=== PATIENT | female | born 1995 ===

== ENCOUNTER 2020-10-30 08:17 | Observation (INO) | payer BC ==
[2020-10-30] MEDS ORDERED: Terbutaline 1 MG/ML SDV SUBCUT PRN (09:10)
[2020-10-30] MEDS ORDERED: Sodium Chloride 0.9% 10 ML Syringe FLUSH PRN (09:10)
[2020-10-30] MEDS ORDERED: Nalbuphine 10 MG/1 ML Vial IVPUSH PRN ×2 (09:10→09:24)
[2020-10-30] MEDS ORDERED: Sodium Chloride 0.9% 2.5 ML Syringe FLUSH PRN (09:10)
[2020-10-30] MEDS ORDERED: Lidocaine 1% 50 ML MDV INJECT PRN (09:10)
[2020-10-30] MEDS ORDERED: Methylergonovine 0.2 MG/1 ML Amp IM PRN (09:10)
[2020-10-30] MEDS ORDERED: Misoprostol 200 MCG Tab PO PRN (09:10)
[2020-10-30] MEDS ORDERED: Sodium Chloride 0.9% 10 ML SDV IV PRN (09:10)
[2020-10-30] MEDS ORDERED: Carboprost Tromethamine 250 MCG/1 ML Amp IM PRN (09:10)
[2020-10-30] MEDS ORDERED: Ondansetron 4 MG/2 ML SDV IVPUSH PRN (09:10)
[2020-10-30] MEDS ORDERED: Water For Irrigation,Sterile 1,000 ML Container IRR PRN (09:10)
[2020-10-30] MEDS ORDERED: Tranexamic Acid 1,000 MG in Sodium Chloride 0.9% 100 ML IV PRN (09:10)
[2020-10-30] MEDS ORDERED: Butorphanol 1 MG/ML SDV IVPUSH PRN (09:10)
[2020-10-30] MEDS ORDERED: Oxytocin/0.9 % Sodium Chloride 30 UNIT/500 ML BAG IV SCH ×2 (09:15)
[2020-10-30] MEDS ORDERED: Lactated Ringers 1,000 ML IV SCH (09:15)
== END 2020-10-30 09:55 | disposition home or self-care (01) ==
LOC: MW.OBCHECK 08:17 → MW.OB 08:17 → MW.OBCHECK 08:30 → MW.OB 08:30
PROVIDERS: ADMIT Obstetrics & Gynecology; ATTEND Obstetrics & Gynecology
DX: O32.1XX0 Maternal care for breech presentation, not applicable or unspecified (principal); Z3A.39 39 weeks gestation of pregnancy
CPT/HCPCS: 36415; 59025; 85027; 86592; 86850; 86900; 86901; J7120

== ENCOUNTER 2020-11-03 07:59 | Inpatient (IN) | payer BC ==
[2020-11-03] MEDS ORDERED: Sodium Chloride 0.9% 10 ML SDV IV PRN (08:12)
[2020-11-03] MEDS ORDERED: Methylergonovine 0.2 MG/1 ML Amp IM PRN ×2 (08:12→16:43)
[2020-11-03] MEDS ORDERED: Water For Irrigation,Sterile 1,000 ML Container IRR PRN (08:12)
[2020-11-03] MEDS ORDERED: Lidocaine 1% 50 ML MDV INJECT PRN (08:12)
[2020-11-03] MEDS ORDERED: Tranexamic Acid 1,000 MG in Sodium Chloride 0.9% 100 ML IV PRN ×2 (08:12→16:43)
[2020-11-03] MEDS ORDERED: Misoprostol 200 MCG Tab PO PRN (08:12)
[2020-11-03] MEDS ORDERED: Sodium Chloride 0.9% 10 ML Syringe FLUSH PRN (08:12)
[2020-11-03] MEDS ORDERED: Carboprost Tromethamine 250 MCG/1 ML Amp IM PRN (08:12)
[2020-11-03] MEDS ORDERED: Nalbuphine 10 MG/1 ML Vial IVPUSH PRN (08:12)
[2020-11-03] MEDS ORDERED: Terbutaline 1 MG/ML SDV SUBCUT PRN (08:12)
[2020-11-03] MEDS ORDERED: Sodium Chloride 0.9% 2.5 ML Syringe FLUSH PRN (08:12)
[2020-11-03] MEDS ORDERED: Butorphanol 1 MG/ML SDV IVPUSH PRN (08:12)
[2020-11-03] MEDS ORDERED: Oxytocin/0.9 % Sodium Chloride 30 UNIT/500 ML BAG IV SCH ×2 (08:15)
[2020-11-03] MEDS: Lactated Ringers 1,000 ML IV SCH ×3 (08:50→13:12)
[2020-11-03] MEDS ORDERED: Ropivacaine HCl/PF 100 ML ONE (12:22)
[2020-11-03] MEDS ORDERED: fentaNYL 100 MCG/2 ML SDV ONE (12:22)
--- NOTE | 2020-11-03 13:12 | PCM.PREANE ---
Preanesthetic Assessment - Procedure Proposed Procedure: Late entry, H&P with pt participation at 1235 prior to epidural placement. LAYLA for labor analgesia - Anesthesia/Transfusion/Family Hx Anesthesia History: Prior Anesthesia Without Reaction (History of breast aug., wisdom teeth under sedation, and multiple successful epidurals, all without anesthesia complications.) Family History of Anesthesia Reaction: No Transfusion History: No Prior Transfusion(s) - Review of Systems General: No Symptoms Pulmonary: No Symptoms Cardiovascular: No Symptoms Gastrointestinal: No Symptoms Neurological: No Symptoms Other: Reports: None - Physical Assessment NPO Status Date: 11/02/20 (Clear liquids only since before midnight) NPO Status Time: 23:30 Height: 1.63 m Weight: 97.976 kg ASA Class: 2 Mental Status: Alert & Oriented x3 Airway Class: Mallampati = 2 Dentition: Reports: Normal Dentition Thyro-Mental Finger Breadths: 3 Mouth Opening Finger Breadths: 3 ROM/Head Extension: Full Lungs: Normal Respiratory Effort Cardiovascular: Regular Rate, Regular Rhythm - Lab Values: Laboratory Last Values WBC 8.89 K/uL (4.0-11.0) 11/03/20 08:40 RBC 3.58 M/uL (4.30-5.90) L 11/03/20 08:40 Hgb 10.0 g/dL (12.0-16.0) L 11/03/20 08:40 Hct 30.8 % (36.0-46.0) L 11/03/20 08:40 MCV 86.0 fL (80.0-98.0) 11/03/20 08:40 MCH 27.9 pg (27.0-32.0) 11/03/20 08:40 MCHC 32.5 g/dL (31.0-37.0) 11/03/20 08:40 RDW Std Deviation 43.2 fl (28.0-62.0) 11/03/20 08:40 RDW Coeff of Joy 14 % (11.0-15.0) 11/03/20 08:40 Plt Count 272 K/uL (150-400) 11/03/20 08:40 MPV 10.60 fL (7.40-12.00) 11/03/20 08:40 Nucleated RBC % 0.0 /100WBC 11/03/20 08:40 Nucleated RBCs # 0 K/uL 11/03/20 08:40 SARS-CoV-2 RNA (BHAVIN) POSITIVE (NEGATIVE) H 11/03/20 07:55 Blood Type O POSITIVE 11/03/20 08:40 Antibody Screen NEGATIVE 11/03/20 08:40 - Allergies Allergies/Adverse Reactions: Allergies Allergy/AdvReac Type Severity Reaction Status Date / Time cefzil Allergy Intermediate Hives Uncoded 11/03/20 08:58 - Acknowledgements Anesthesia Type Planned: Epidural Pt an Appropriate Candidate for the Planned Anesthesia: Yes Alternatives and Risks of Anesthesia Discussed w Pt/Guardian: Yes Pt/Guardian Understands and Agrees with Anesthesia Plan: Yes Additional Comments: Plan for epidural as requested by patient. 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 All questions answered and concerns addressed. Consent signed with RN witness. PreAnesthesia Questionnaire - HOME MEDS Home Medications: Home Meds Pnv No.95/Ferrous Fum/Folic AC [ Multivitamin Tablet] 1 each PO DAILY 11/03/20 [History] - CURRENT (IN HOUSE) MEDS Current Meds: Current Medications Butorphanol Tartrate (Stadol) 1 mg IVPUSH Q1H PRN PRN Reason: Pain Carboprost Tromethamine (Hemabate Ds) 250 mcg IM ASDIRECTED PRN PRN Reason: Post Hemorrhage Oxytocin/Sodium Chloride (Oxytocin 30 Unit/500 Ml-Ns) 30 unit in 500 mls @ 2 mls/hr IV TITRATE KRIS; Protocol Last Titration: 11/03/20 12:00 Dose: 4 munits/min, 4 mls/hr Documented by: Lactated Ringer's (Ringers, Lactated) 1,000 mls @ 150 mls/hr IV ASDIRECTED KRIS Last Admin: 11/03/20 11:16 Dose: 150 mls/hr Documented by: Oxytocin/Sodium Chloride (Oxytocin 30 Unit/500 Ml-Ns) 30 unit in 500 mls @ 500 mls/hr IV TITRATE KRIS Tranexamic Acid 1,000 mg/ (Sodium Chloride) 110 mls @ 660 mls/hr IV ONETIME PRN PRN Reason: Bleeding Lidocaine HCl (Xylocaine 1%) 50 ml INJECT ONETIME PRN PRN Reason: Laceration repair Methylergonovine Maleate (Methergine) 0.2 mg IM ASDIRECTED PRN PRN Reason: Post Hemorrhage Misoprostol (Cytotec) 200 mcg PO ONETIME PRN PRN Reason: Post Hemorrhage Nalbuphine HCl (Nubain) 10 mg IVPUSH Q1H PRN PRN Reason: Pain (severe 7-10) Sodium Chloride (Saline Flush) 10 ml FLUSH ASDIRECTED PRN PRN Reason: Keep Vein Open Sodium Chloride (Saline Flush) 2.5 ml FLUSH ASDIRECTED PRN PRN Reason: Keep Vein Open Sodium Chloride (Normal Saline) 10 ml IV ASDIRECTED PRN PRN Reason: IV Use Sterile Water (Sterile Water For Irrigation) 1,000 ml IRR ASDIRECTED PRN PRN Reason: delivery Terbutaline Sulfate (Brethine) 0.25 mg SUBCUT ASDIRECTED PRN PRN Reason: Tacysystole Discontinued Medications Fentanyl (Sublimaze) Confirm Administered Dose 200 mcg .ROUTE .STK-MED ONE Stop: 11/03/20 12:23 Ropivacaine (Naropin 0.2%) Confirm Administered Dose 100 mls @ as directed .ROUTE .STK-MED ONE Stop: 11/03/20 12:23
--- NOTE | 2020-11-03 13:13 | PCM.SN.2 ---
- Free Text/Narrative Note: Anesthesia time 1235- 1328 1235- Bedside for LAYLA for labor analgesia as requested by patient. Pt COVID positive- proper PPE and hand washing/ infection control techniques employed at all times. H & P performed with patient participation. 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 All questions answered and concerns addressed. Consent signed with RN witness. 1240- Pt already in seated position. Monitors on (BP, pulse ox), "time out" performed 1242- Sterile technique employed. Chlorhexidine to prep., sterile plastic drape, lido 1% for localization. 1249- First attempt successful at L3-4 with JONAH at 5.5 cm. Catheter threaded to 10 cm without resistance or paresthesias. 1250- Negative to aspiration for both CSF and heme, test dose negative. 1301- Infusion started (0.2% ropivicaine with 2mcg/ml fentanyl at 6ml/hr, 4ml Q10min FORGING PRESS LEVER TENDER option, 32 ml/hr lockout). Bolus of 6ml ropiv./fentanyl administered. 1328- Reassessed, T10 level achieved, pt reports satisfactory pain control, VSS.
[2020-11-03] MEDS ORDERED: Bisacodyl 10 MG Supp RECTAL PRN (16:43)
[2020-11-03] MEDS ORDERED: Benzocaine/Menthol 20%-0.5% Spray 78 GM Cannister TOP PRN (16:43)
[2020-11-03] MEDS ORDERED: Docusate Sodium 100 MG Cap PO PRN (16:43)
[2020-11-03] MEDS ORDERED: Witch Hazel Medicated Pads 40/Jar TOP PRN (16:43)
[2020-11-03] MEDS ORDERED: Ibuprofen 400 MG Tab PO PRN (16:43)
[2020-11-03] MEDS ORDERED: Acetaminophen 500 MG Tab PO PRN (16:43)
[2020-11-03] MEDS ORDERED: Lanolin 100% Cream 7 GM Tube TOP PRN (16:43)
--- NOTE | 2020-11-03 16:46 | PCM.DEL ---
L & D Note - General Info Date of Service: 11/03/20 Mother's Due Date: 11/03/20 - Delivery Note Labor: Augmented by ARM, Augmented by Oxytocin Delivery Outcome: Livebirth Delivery Method: Spontaneous Vaginal Delivery-Single Presentation: Left Occiput Anterior (MARK) Nuchal Cord: None Prep: Other Anesthesia Type: Epidural Amniotic Fluid Description: Clear Episiotomy Type: None Laceration: None Placenta: Intact, Spontaneous Cord: 3 Vessels Estimated Blood Loss: 200 Resuscitation Needed: No Chaplin: Suctioned Score 1 min: 8 Score 5 min: 9 Delivery Comments (Free Text/Narrative):: Liveborn male, Weight pending. - General Info Date of Service: 11/03/20 - Patient Data Weight - Most Recent: 97.976 kg Lab Results Last 24 Hours: Laboratory Results - last 24 hr 11/03/20 11/03/20 11/03/20 Range/Units 07:55 08:40 08:40 WBC 8.89 (4.0-11.0) K/uL RBC 3.58 L (4.30-5.90) M/uL Hgb 10.0 L (12.0-16.0) g/dL Hct 30.8 L (36.0-46.0) % MCV 86.0 (80.0-98.0) fL MCH 27.9 (27.0-32.0) pg MCHC 32.5 (31.0-37.0) g/dL RDW Std Deviation 43.2 (28.0-62.0) fl RDW Coeff of Joy 14 (11.0-15.0) % Plt Count 272 (150-400) K/uL MPV 10.60 (7.40-12.00) fL Nucleated RBC % 0.0 /100WBC Nucleated RBCs # 0 K/uL SARS-CoV-2 RNA (BHAVIN) POSITIVE H (NEGATIVE) Blood Type O POSITIVE Antibody Screen NEGATIVE Med Orders - Current: Current Medications Discontinued Medications Butorphanol Tartrate (Stadol) 1 mg IVPUSH Q1H PRN PRN Reason: Pain Carboprost Tromethamine (Hemabate Ds) 250 mcg IM ASDIRECTED PRN PRN Reason: Post Hemorrhage Fentanyl (Sublimaze) Confirm Administered Dose 200 mcg .ROUTE .STK-MED ONE Stop: 11/03/20 12:23 Oxytocin/Sodium Chloride (Oxytocin 30 Unit/500 Ml-Ns) 30 unit in 500 mls @ 2 mls/hr IV TITRATE KRIS; Protocol Last Titration: 11/03/20 14:00 Dose: 8 munits/min, 8 mls/hr Documented by: Lactated Ringer's (Ringers, Lactated) 1,000 mls @ 150 mls/hr IV ASDIRECTED KRIS Last Admin: 11/03/20 13:12 Dose: 150 mls/hr Documented by: Oxytocin/Sodium Chloride (Oxytocin 30 Unit/500 Ml-Ns) 30 unit in 500 mls @ 500 mls/hr IV TITRATE KRIS Tranexamic Acid 1,000 mg/ (Sodium Chloride) 110 mls @ 660 mls/hr IV ONETIME PRN PRN Reason: Bleeding Ropivacaine (Naropin 0.2%) Confirm Administered Dose 100 mls @ as directed .ROUTE .[facility]-MED ONE Stop: 11/03/20 12:23 Lidocaine HCl (Xylocaine 1%) 50 ml INJECT ONETIME PRN PRN Reason: Laceration repair Methylergonovine Maleate (Methergine) 0.2 mg IM ASDIRECTED PRN PRN Reason: Post Hemorrhage Misoprostol (Cytotec) 200 mcg PO ONETIME PRN PRN Reason: Post Hemorrhage Nalbuphine HCl (Nubain) 10 mg IVPUSH Q1H PRN PRN Reason: Pain (severe 7-10) Sodium Chloride (Saline Flush) 10 ml FLUSH ASDIRECTED PRN PRN Reason: Keep Vein Open Sodium Chloride (Saline Flush) 2.5 ml FLUSH ASDIRECTED PRN PRN Reason: Keep Vein Open Sodium Chloride (Normal Saline) 10 ml IV ASDIRECTED PRN PRN Reason: IV Use Sterile Water (Sterile Water For Irrigation) 1,000 ml IRR ASDIRECTED PRN PRN Reason: delivery Terbutaline Sulfate (Brethine) 0.25 mg SUBCUT ASDIRECTED PRN PRN Reason: Tacysystole - Problem List & Annotations (1) Vaginal delivery SNOMED Code(s): 083043164 Code(s): O80 - ENCOUNTER FOR FULL-TERM UNCOMPLICATED DELIVERY Status: Acute Current Visit: Yes - Problem List Review Problem List Initiated/Reviewed/Updated: Yes - My Orders Last 24 Hours: My Active Orders 11/03/20 Dinner Regular Diet [DIET] 11/03/20 16:43 Patient Status [ADT] Routine May Shower [RC] ASDIRECTED Up ad Rajni [RC] ASDIRECTED Vital Signs [RC] PER UNIT ROUTINE BLOOD GAS ARTERIAL UMBILICAL [BG] Urgent BLOOD GAS VENOUS UMBILICAL [BG] Urgent Acetaminophen [Tylenol Extra Strength] 1,000 mg PO Q4H PRN Acetaminophen [Tylenol Extra Strength] 500 mg PO Q4H PRN Benzocaine/Menthol [Dermoplast Pain Relief 20%-0.5% [place]] 78 gm TOP ASDIRECTED PRN Docusate Sodium [Colace] 100 mg PO BID PRN Ibuprofen [Motrin] 400 mg PO Q4H PRN Ibuprofen [Motrin] 800 mg PO Q6H PRN Lanolin [Lansinoh HPA] See Dose Instructions TOP ASDIRECTED PRN Methylergonovine [Methergine] 0.2 mg IM ONETIME PRN Tranexamic Acid [Cyklokapron] 1,000 mg Sodium Chloride 0.9% [Normal Saline] 100 ml IV ONETIME bisacodyL [Dulcolax] 10 mg RECTAL ONETIME PRN witch Rey [Tucks] 1 pad TOP ASDIRECTED PRN Assess Lochia [WOMSER] Per Unit Routine Assess Uterine Involution [WOMSER] Per Unit Routine Perineal Care [OM.PC] Per Unit Routine Peripheral IV Discontinue [OM.PC] Routine Resuscitation Status Routine 11/04/20 05:11 HEMOGLOBIN/HEMATOCRIT,HH [HEME] Timed
--- NOTE | 2020-11-03 17:24 | OR ---
SURGEON: Janice Rose M.D. DATE OF PROCEDURE: 11/03/2020 PREOPERATIVE DIAGNOSES: A 39-week intrauterine . Unstable lie. Induction of labor. POSTOPERATIVE DIAGNOSES: A 39-week intrauterine . Unstable lie. Induction of labor. PROCEDURES: Pitocin induction of labor, artificial rupture of membranes, term spontaneous vaginal delivery. ANESTHESIA: Epidural. ESTIMATED BLOOD LOSS: Less than 200 mL. FINDINGS: Liveborn male, score of 8 and 9, weighing 3800 g. Placenta spontaneous. Schultze intact with 3 vessels. Perineum intact. COMPLICATIONS: None known. DISPOSITION: Stable to Recovery. BRIEF HISTORY: This is a 25-year-old female. She presents for induction of labor. Initially, she presented earlier in the week for an induction of labor what was actually in breech presentation. The induction was therefore delayed and she was seen in the clinic. At that time, she was cephalic presentation. There was no room on Labor and Delivery to induce her at that time, and therefore, she presents today for induction. Presentation was confirmed to be cephalic. She is group B strep negative. She had category 1 heart tones throughout labor. She had artificial rupture of membranes followed by Pitocin and epidural. She progressed to complete. DESCRIPTION OF PROCEDURE: With the patient in the dorsal lithotomy position, the patient pushed over 1 contraction to a 5+ station, at which time the head was delivered spontaneously and atraumatically over the perineum with support with subsequent delivery of the 's shoulders and body without any difficulty. The was bulb suctioned by nose and mouth, and after 1 minute, the cord was doubly clamped and cut. The was handed to the mother in the presence of the nurse attending delivery. The was a liveborn male, score of 8 and 9, weighing 3800 g. Cord blood was collected for cord ABGs as well as routine cord blood sampling. Pitocin was initiated after delivery of the to assist with the delivery of the placenta which was delivered spontaneously. Schultze intact with 3 vessels. Upon inspection of the pelvis and perineum, there were no periurethral, vaginal sidewall, cervical, rectal, or perineal lacerations. EBL was less than 200 mL. There were no known complications. Mother and baby are in LDR in good condition. Note, the patient was COVID-positive upon this admission and full PPE was utilized at all times while in the patient's room. CHRISTIANNE GARCIA /[id number]
[2020-11-03] MEDS: Ibuprofen 800 MG Tab PO PRN (17:56)
[2020-11-03] MEDS: Acetaminophen 500 MG Tab PO PRN (22:02)
[2020-11-04] MEDS: Ibuprofen 800 MG Tab PO PRN ×3 (02:22→17:31)
--- NOTE | 2020-11-04 06:36 | PCM48HPAN ---
Post Anesthesia Note - EVALUATION WITHIN 48HRS OF ANESTHETIC Vital Signs in Normal Range: Yes Patient Participated in Evaluation: Yes Respiratory Function Stable: Yes Airway Patent: Yes Cardiovascular Function Stable: Yes Hydration Status Stable: Yes Pain Control Satisfactory: Yes (Pain 3/10, reports satisfactory pain control) Nausea and Vomiting Control Satisfactory: Yes (Taking PO well, no nausea) Mental Status Recovered: Yes Vital Signs: Last Vital Signs Temp 36.0 C L 11/04/20 04:26 Pulse 76 11/04/20 04:26 Resp 14 11/04/20 04:26 BP 106/53 L 11/04/20 04:26 Pulse Ox 98 11/04/20 04:26 - COMMENTS/OBSERVATIONS Free Text/Narrative:: Ambulating well with full return of strength and sensation to BLE, per pt. report
[2020-11-04] MEDS: Acetaminophen 500 MG Tab PO PRN ×3 (06:40→17:31)
--- NOTE | 2020-11-04 08:57 | PCM.PNPP ---
- General Info Date of Service: 11/04/20 Subjective Update: 25yo s/p PPD 1 , ambulating , voiding and tolerating regular diet Functional Status: Reports: Pain Controlled, Tolerating Diet, Ambulating, Urinating - Review of Systems General: Reports: No Symptoms HEENT: Reports: No Symptoms Pulmonary: Reports: No Symptoms Cardiovascular: Reports: No Symptoms Gastrointestinal: Reports: No Symptoms Genitourinary: Reports: No Symptoms Musculoskeletal: Reports: No Symptoms Skin: Reports: No Symptoms Neurological: Reports: No Symptoms Psychiatric: Reports: No Symptoms - General Info Date of Service: 11/04/20 - Patient Data Vital Signs - Most Recent: Last Vital Signs Temp 36.0 C L 11/04/20 04:26 Pulse 76 11/04/20 04:26 Resp 14 11/04/20 04:26 BP 106/53 L 11/04/20 04:26 Pulse Ox 98 11/04/20 04:26 Weight - Most Recent: 97.976 kg Lab Results - Last 24 Hours: Laboratory Results - last 24 hr 11/03/20 11/03/20 11/03/20 Range/Units 07:55 08:40 08:40 WBC 8.89 (4.0-11.0) K/uL RBC 3.58 L (4.30-5.90) M/uL Hgb 10.0 L (12.0-16.0) g/dL Hct 30.8 L (36.0-46.0) % MCV 86.0 (80.0-98.0) fL MCH 27.9 (27.0-32.0) pg MCHC 32.5 (31.0-37.0) g/dL RDW Std Deviation 43.2 (28.0-62.0) fl RDW Coeff of Joy 14 (11.0-15.0) % Plt Count 272 (150-400) K/uL MPV 10.60 (7.40-12.00) fL Nucleated RBC % 0.0 /100WBC Nucleated RBCs # 0 K/uL Cord ABG pH (7.18-7.38) Cord ABG Base Excess (-10--2) Cord VBG pH (7.25-7.45) Cord VBG Base Excess (-10--2) SARS-CoV-2 RNA (BHAVIN) POSITIVE H (NEGATIVE) Blood Type O POSITIVE Antibody Screen NEGATIVE 11/03/20 11/04/20 Range/Units 16:32 06:25 WBC (4.0-11.0) K/uL RBC (4.30-5.90) M/uL Hgb 9.7 L (12.0-16.0) g/dL Hct 30.0 L (36.0-46.0) % MCV (80.0-98.0) fL MCH (27.0-32.0) pg MCHC (31.0-37.0) g/dL RDW Std Deviation (28.0-62.0) fl RDW Coeff of Joy (11.0-15.0) % Plt Count (150-400) K/uL MPV (7.40-12.00) fL Nucleated RBC % /100WBC Nucleated RBCs # K/uL Cord ABG pH 7.284 (7.18-7.38) Cord ABG Base Excess -4 (-10--2) Cord VBG pH 7.362 (7.25-7.45) Cord VBG Base Excess -4 (-10--2) SARS-CoV-2 RNA (BHAVIN) (NEGATIVE) Blood Type Antibody Screen Med Orders - Current: Current Medications Acetaminophen (Tylenol Extra Strength) 500 mg PO Q4H PRN PRN Reason: Pain Acetaminophen (Tylenol Extra Strength) 1,000 mg PO Q4H PRN PRN Reason: Pain Last Admin: 11/04/20 06:40 Dose: 1,000 mg Documented by: Benzocaine/Menthol (Dermoplast Pain Relief 20%-0.5% [place]) 78 gm TOP ASDIRECTED PRN PRN Reason: Perineal Comfort Measure Last Admin: 11/03/20 17:55 Dose: 1 canister Documented by: Bisacodyl (Dulcolax) 10 mg RECTAL ONETIME PRN PRN Reason: Constipation Docusate Sodium (Colace) 100 mg PO BID PRN PRN Reason: Constipation Last Admin: 11/03/20 21:57 Dose: 100 mg Documented by: Emollient Ointment (Lansinoh Hpa) 0 gm TOP ASDIRECTED PRN PRN Reason: Sore Nipples Last Admin: 11/03/20 17:55 Dose: 1 tube Documented by: Tranexamic Acid 1,000 mg/ (Sodium Chloride) 110 mls @ 660 mls/hr IV ONETIME PRN PRN Reason: Bleeding Ibuprofen (Motrin) 400 mg PO Q4H PRN PRN Reason: Pain Ibuprofen (Motrin) 800 mg PO Q6H PRN PRN Reason: Pain Last Admin: 11/04/20 02:22 Dose: 800 mg Documented by: Methylergonovine Maleate (Methergine) 0.2 mg IM ONETIME PRN PRN Reason: Excessive Vaginal Bleeding Witryder Dalal (Tucks) 1 pad TOP ASDIRECTED PRN PRN Reason: comfort care Last Admin: 11/03/20 17:54 Dose: 1 tub Documented by: Discontinued Medications Butorphanol Tartrate (Stadol) 1 mg IVPUSH Q1H PRN PRN Reason: Pain Carboprost Tromethamine (Hemabate Ds) 250 mcg IM ASDIRECTED PRN PRN Reason: Post Hemorrhage Fentanyl (Sublimaze) Confirm Administered Dose 200 mcg .ROUTE .[place]-MED ONE Stop: 11/03/20 12:23 Oxytocin/Sodium Chloride (Oxytocin 30 Unit/500 Ml-Ns) 30 unit in 500 mls @ 2 mls/hr IV TITRATE KRIS; Protocol Last Titration: 11/03/20 16:35 Dose: 500 munits/min, 500 mls/hr Documented by: Lactated Ringer's (Ringers, Lactated) 1,000 mls @ 150 mls/hr IV ASDIRECTED KRIS Last Admin: 11/03/20 13:12 Dose: 150 mls/hr Documented by: Oxytocin/Sodium Chloride (Oxytocin 30 Unit/500 Ml-Ns) 30 unit in 500 mls @ 500 mls/hr IV TITRATE KRIS Tranexamic Acid 1,000 mg/ (Sodium Chloride) 110 mls @ 660 mls/hr IV ONETIME PRN PRN Reason: Bleeding Ropivacaine (Naropin 0.2%) Confirm Administered Dose 100 mls @ as directed .ROUTE .STK-MED ONE Stop: 11/03/20 12:23 Lidocaine HCl (Xylocaine 1%) 50 ml INJECT ONETIME PRN PRN Reason: Laceration repair Methylergonovine Maleate (Methergine) 0.2 mg IM ASDIRECTED PRN PRN Reason: Post Hemorrhage Misoprostol (Cytotec) 200 mcg PO ONETIME PRN PRN Reason: Post Hemorrhage Nalbuphine HCl (Nubain) 10 mg IVPUSH Q1H PRN PRN Reason: Pain (severe 7-10) Sodium Chloride (Saline Flush) 10 ml FLUSH ASDIRECTED PRN PRN Reason: Keep Vein Open Sodium Chloride (Saline Flush) 2.5 ml FLUSH ASDIRECTED PRN PRN Reason: Keep Vein Open Sodium Chloride (Normal Saline) 10 ml IV ASDIRECTED PRN PRN Reason: IV Use Sterile Water (Sterile Water For Irrigation) 1,000 ml IRR ASDIRECTED PRN PRN Reason: delivery Terbutaline Sulfate (Brethine) 0.25 mg SUBCUT ASDIRECTED PRN PRN Reason: Tacysystole - Interaction Support Person: - Recovery Exam Fundal Tone: Firm Fundal Level: At Umbilicus Fundal Placement: Midline Lochia Amount: Small Lochia Color: Rubra/Red Perineum Description: Intact, Minimal Bruising/Swelling Episiotomy/Laceration: None Bladder Status: Voiding Urinary Elimination: Voided - Exam General: Alert HEENT: Pupils Equal Neck: Supple Lungs: Clear to Auscultation Cardiovascular: Regular Rate, Regular Rhythm GI/Abdominal Exam: Normal Bowel Sounds Extremities: Normal Inspection, Normal Range of Motion Neurological: No New Focal Deficit Psy/Mental Status: Alert - Problem List & Annotations (1) Vaginal delivery SNOMED Code(s): 987264820 Code(s): O80 - ENCOUNTER FOR FULL-TERM UNCOMPLICATED DELIVERY Status: Acute Current Visit: Yes - Problem List Review Problem List Initiated/Reviewed/Updated: Yes - My Orders Last 24 Hours: My Active Orders 11/03/20 08:40 RPR (SYPHILIS SERO) W/ RFLX [REF] Routine - Assessment Assessment:: 25yo PPD1 , s/p COVID positive asymptomatic , - Plan Plan:: Routine Discharge home
== END 2020-11-04 18:49 | disposition home or self-care (01) | DRG 560 ==
LOC: MW.OBCHECK 07:59 → MW.OB 08:00 → MW.OBCHECK 08:12 → OBSVTOIN 16:32 → MW.OB 20:06
PROVIDERS: ADMIT Obstetrics & Gynecology; ATTEND Obstetrics & Gynecology
PROC: 10E0XZZ Delivery of Products of Conception, External Approach (ICD-10-PCS; principal; 2020-11-03)
PROC: 10907ZC Drainage of Amniotic Fluid, Therapeutic from Products of Conception, Via Natural or Artificial Opening (ICD-10-PCS; 2020-11-03)
PROC: 3E0R3BZ Introduction of Anesthetic Agent into Spinal Canal, Percutaneous Approach (ICD-10-PCS; 2020-11-03)
DX: O98.52 Other viral diseases complicating childbirth (principal); Z3A.38 38 weeks gestation of pregnancy; Z37.0 Single live birth; U07.1 COVID-19
CPT/HCPCS: 01967; 36415; 51702; 59025; 59409; 82803; 85014; 85018; 85027; 86592; 86850; 86900; 86901; A9270-GY; J2590; J7120; U0002

== ENCOUNTER 2022-06-15 16:44 | Inpatient (IN) | payer BC ==
[2022-06-15] MEDS ORDERED: Sodium Chloride 0.9% 20 ML SDV IV PRN (17:06)
[2022-06-15] MEDS ORDERED: Methylergonovine 0.2 MG/1 ML Amp IM PRN (17:06)
[2022-06-15] MEDS ORDERED: Lidocaine 1% 50 ML MDV INJECT PRN (17:06)
[2022-06-15] MEDS ORDERED: Sodium Chloride 0.9% 2.5 ML Syringe FLUSH PRN (17:06)
[2022-06-15] MEDS ORDERED: Ondansetron 4 MG/2 ML SDV IVPUSH PRN (17:06)
[2022-06-15] MEDS ORDERED: Misoprostol 200 MCG Tab PO PRN (17:06)
[2022-06-15] MEDS ORDERED: Butorphanol 1 MG/ML SDV IVPUSH PRN (17:06)
[2022-06-15] MEDS ORDERED: Water For Irrigation,Sterile 1,000 ML Container IRR PRN (17:06)
[2022-06-15] MEDS ORDERED: Sodium Chloride 0.9% 10 ML Syringe FLUSH PRN (17:06)
[2022-06-15] MEDS ORDERED: Carboprost Tromethamine 250 MCG/1 ML Amp IM PRN (17:06)
[2022-06-15] MEDS ORDERED: Tranexamic Acid 1,000 MG in Sodium Chloride 0.9% 100 ML IV PRN (17:06)
[2022-06-15] MEDS ORDERED: Terbutaline 1 MG/ML SDV SUBCUT PRN (17:06)
[2022-06-15] MEDS ORDERED: Oxytocin/0.9 % Sodium Chloride 30 UNIT/500 ML BAG IV SCH ×2 (17:15)
[2022-06-15] MEDS ORDERED: Lactated Ringers 1,000 ML IV SCH (17:15)
[2022-06-15] MEDS ORDERED: ePHEDrine 50 MG/ML SDV IVPUSH PRN ×2 (22:02)
[2022-06-15] MEDS ORDERED: Ropivacaine HCl/PF 400 MG in Premix Bag 1 BAG EPIDUR SCH (22:15)
[2022-06-16] MEDS ORDERED: Ondansetron 4 MG/2 ML SDV ONE (00:02)
[2022-06-16] MEDS ORDERED: Ketorolac 30 MG/ML SDV ONE (00:29)
[2022-06-16] MEDS ORDERED: Docusate Sodium 100 MG Cap PO PRN (05:29)
[2022-06-16] MEDS ORDERED: Benzocaine/Menthol 20%-0.5% Spray 78 GM Cannister TOP PRN (05:29)
[2022-06-16] MEDS ORDERED: Lanolin 100% Cream 7 GM Tube TOP PRN (05:29)
[2022-06-16] MEDS ORDERED: oxyCODONE 5 MG Tab PO PRN (05:29)
[2022-06-16] MEDS ORDERED: Bisacodyl 10 MG Supp RECTAL PRN (05:29)
[2022-06-16] MEDS ORDERED: Ibuprofen 400 MG Tab PO PRN (05:29)
[2022-06-16] MEDS ORDERED: Acetaminophen 500 MG Tab PO PRN (05:29)
[2022-06-16] MEDS ORDERED: Witch Hazel Medicated Pads 40/Jar TOP PRN (05:29)
[2022-06-16] MEDS: Acetaminophen 500 MG Tab PO PRN ×4 (05:56→22:50)
[2022-06-16] MEDS: Ibuprofen 800 MG Tab PO PRN ×3 (06:42→20:32)
[2022-06-17] MEDS: Ibuprofen 800 MG Tab PO PRN ×2 (03:59→15:41)
[2022-06-17] MEDS: Acetaminophen 500 MG Tab PO PRN (09:44)
== END 2022-06-17 22:00 | disposition home or self-care (01) | DRG 560 ==
LOC: MW.OB 16:44 → MW.OBCHECK 16:44 → MW.OB 17:06 → OBSVTOIN 23:55 → MW.OB 06-16 07:56
PROVIDERS: ADMIT Obstetrics & Gynecology; ATTEND Obstetrics & Gynecology
PROC: 10E0XZZ Delivery of Products of Conception, External Approach (ICD-10-PCS; principal; 2022-06-15)
PROC: 10907ZC Drainage of Amniotic Fluid, Therapeutic from Products of Conception, Via Natural or Artificial Opening (ICD-10-PCS; 2022-06-15)
PROC: 3E0P7VZ Introduction of Hormone into Female Reproductive, Via Natural or Artificial Opening (ICD-10-PCS; 2022-06-15)
PROC: 3E033VJ Introduction of Other Hormone into Peripheral Vein, Percutaneous Approach (ICD-10-PCS; 2022-06-15)
PROC: 3E0R3BZ Introduction of Anesthetic Agent into Spinal Canal, Percutaneous Approach (ICD-10-PCS; 2022-06-15)
PROC: 00HU33Z Insertion of Infusion Device into Spinal Canal, Percutaneous Approach (ICD-10-PCS; 2022-06-15)
DX: O30.043 Twin pregnancy, dichorionic/diamniotic, third trimester (principal); Z37.2 Twins, both liveborn; O36.5931 Maternal care for other known or suspected poor fetal growth, third trimester, fetus 1; O62.3 Precipitate labor; Z3A.38 38 weeks gestation of pregnancy; Z20.822 Contact with and (suspected) exposure to COVID-19
CPT/HCPCS: 01967; 36415; 51702; 59025; 59409; 85014; 85018; 85027; 86592; 86850; 86900; 86901; A9270-GY; J1885; J2405; J2590; J2795; J7120; U0002